=== PATIENT | female | born 1960 | race Caucasian/White ===

== ENCOUNTER 2022-08-23 02:06 | Day surgery (SDC) | payer OTHER, SELFPAY ==
[2022-08-10 14:15] VITALS: BMI 33.0
--- NOTE | 2022-08-10 14:16 | PC.NURSE ---
Report to the Outpatient Waiting Room, entrance under the green pavilion located off [facility], at time _1015_ on date _[id number]_. OR Time: _1215_. Time changes happen often and if your time is changed the preop area will call you the afternoon before. - You and your visitor will be asked to self-screen and do not enter if you have any COVID symptoms. - Only one visitor and NO children visitors are allowed at this time. - The patient visitor is requested to leave or wait in car when not with patient due to restrictions. - A mask is required within the hospital. Patients may have clear liquids (water, carbonated beverages, clear teas, apple juice) until 3 hours prior to surgery with a maximum of 20 ounces. - No food from midnight until time of surgery Take the following medications with a SIP of water the morning of surgery: ____Carvidilol Medications to discontinue per physician ____None Date to take last dose Please no make-up, nail [place], hairspray, perfume, deodorant, or body powder the day of surgery. No jewelry (including any body piercings) or valuables the day of surgery, leave them at home. Please take a shower or bath the night before, or the morning of, surgery with an antibacterial soap. Wear comfortable, loose fitting clothing. - Jewelry must be removed prior to entering the operating room. Rings and piercings that are not removed may be cut off. - The hospital will not accept responsibility for valuables. - Please leave all valuables, including medications, at home the day of surgery. If you are going home after surgery, a licensed [employer] flatbed driver must drive you home. - NO public transportation without another adult. - We recommend that an adult stay with you for 24 hours following discharge. - We also recommend that you do not drive, make important decision, drink alcoholic beverages, or take any drugs that were not prescribed by your health care provider for at least 24 hours after your discharge time. Follow any additional instructions given to you from your surgeon. If you or anyone in your household have experienced Covid symptoms in the past week, please notify your surgeon or the nurse liaison at the phone number below for possible testing. Telephone instructions given to _Patient___and asked if any additional questions and then verbalized understanding. Patient advised to call surgeon office or pre surgery nurse liaison [phone] if any additional questions.
--- NOTE | 2022-08-23 08:22 | WPDHPUPDATE1 ---
History and Physical Update Update Date/Time: 08/23/22 08:22 History and Physical has been reviewed, including an updated exam of the patient. There are NO changes in the patient's condition. Risks, benefits, and alternatives have been discussed and questions answered. Patient agrees to proceed with procedure.
--- NOTE | 2022-08-23 08:22 | PM.HPGS ---
History of Present Illness History of Present Illness Consent: Risks, benefits, and alternatives have been discussed and questions answered. Patient agrees to proceed with procedure. Chief complaint: embedded IUD Narrative: Melanie Marques is a 61 year old female with embedded intrauterine device. Attempt to remove the intrauterine device at her office appointment were not successful. The IUD appears to be embedded within the myometrium. It was recommended to proceed with hysteroscopy for removal. The risks of infection, bleeding, perforation, and inability to remove the IUD were reviewed. Patient voices understanding and agrees to proceed. Review of Systems Review of Systems: not repeated day of surgery; patient states no changes in status [facility] Past Medical History Medical History (Updated 08/23/22 @ 08:28 by Janet Toth MD) Breast cancer diagnosed May of 2022 HTN (hypertension) Migraines (normal spontaneous vaginal delivery) x2 Surgical History Surgical History (Updated 08/23/22 @ 11:22 by Janet Toth MD) History of ankle surgery History of appendectomy History of bilateral knee replacement History of breast biopsy History of cholecystectomy History of tonsillectomy S/P bilateral mastectomy 07/29 with placement of expanders Social History Social History Smoking status: Never smoker Alcohol intake: current Living arrangements: with family Spiritual care concerns: No Meds Home Medications and Allergies Home Medications Medication Instructions Recorded Confirmed Type carvedilol 12.5 mg tablet 12.5 mg PO BID 08/10/22 08/10/22 History ergocalciferol (vitamin D2) 1,250 1,250 mcg PO WEEKLY 08/10/22 08/10/22 History mcg (50,000 unit) capsule fiber 2 cap PO BID 08/10/22 08/10/22 History losartan 50 mg tablet 50 mg PO BID 08/10/22 08/10/22 History Allergies Allergy/AdvReac Type Severity Reaction Status Date / Time Sulfa (Sulfonamide Allergy Severe Hives Verified 08/10/22 14:04 Antibiotics) latex Allergy Intermediate Rash Verified 08/10/22 14:04 Opioids - Morphine Analogues AdvReac Intermediate Hallucinati Verified 08/10/22 14:04 ng Exam Const: General: healthy appearing and alert Orientation/consciousness: patient oriented x3 Resp: Effort & Inspection: normal respiratory effort GI: GI Palp: Yes Soft to palpation, No Tenderness to palpation present (GI) and No Palpable mass present : External Female Exam: normal external appearance Speculum Exam - Vagina: normal appearance of the vagina and normal vaginal discharge Speculum Exam - Cervix: normal appearance of the cervix Bimanual exam- vagina & uterus: uterine size normal and consistency normal Bimanual Exam- Adnexa, other: normal adnexae and No adnexal tenderness Neuro: General: patient oriented x3 Assessment and Plan Assessment and plan (1) Malpositioned intrauterine device (IUD): Code(s): T83.32XA - Displacement of intrauterine contraceptive device, initial encounter Status: Acute Assessment and Plan: plan to proceed with the hysteroscopic removal of IUD
[2022-08-23 11:00] VITALS: BP 132/72; PULSE 66; RESP 10; TEMP 37.4; O2SAT 100
[2022-08-23] MEDS: ACETAMINOPHEN 500 MG TABLET 1000 MG PO (11:00)
[2022-08-23] MEDS: LACTATED RINGERS 1,000 ML 30 ML IV CONT (11:00)
--- NOTE | 2022-08-23 11:29 | P.PNAN_ITS ---
Anes - Initial Pre Proc Eval Procedure: Operation Date: 08/23/22 12:15 Proposed Procedures p Hysteroscopy, Intrauterine Device Removal - Janet Toth MD Date/Time: 08/23/22 11:29 Surgeon: Janet Toth MD Pre Op Diagnosis: embedded IUD Patient Data Age: 61 Gender: F Height: 1.74 m Weight: 100 kg Allergies Allergy/AdvReac Type Severity Reaction Status Date / Time Sulfa (Sulfonamide Allergy Severe Hives Verified 08/10/22 14:04 Antibiotics) latex Allergy Intermediate Rash Verified 08/10/22 14:04 Opioids - Morphine Analogues AdvReac Intermediate Hallucinati Verified 08/10/22 14:04 ng Home Medications Medication Instructions Recorded Confirmed Type carvedilol 12.5 mg tablet 12.5 mg PO BID 08/10/22 08/10/22 History ergocalciferol (vitamin D2) 1,250 1,250 mcg PO WEEKLY 08/10/22 08/10/22 History mcg (50,000 unit) capsule fiber 2 cap PO BID 08/10/22 08/10/22 History losartan 50 mg tablet 50 mg PO BID 08/10/22 08/10/22 History Patient hx anesthesia problems: none Family hx anesthesia problems: none Results Review: All pre-operative results and documents have been reviewed as part of the pre- operative evaluation. [facility] Past Medical History Medical History (Updated 08/23/22 @ 11:30 by Julien Diaz MD) Breast cancer diagnosed May of 2022 HTN (hypertension) Migraines (normal spontaneous vaginal delivery) x2 ELIANA (obstructive sleep apnea) Surgical History Surgical History History of ankle surgery History of appendectomy History of bilateral knee replacement History of breast biopsy History of cholecystectomy History of tonsillectomy S/P bilateral mastectomy 07/29 with placement of expanders Social History Social History Smoking status: Never smoker Alcohol intake: current Living arrangements: with family Spiritual care concerns: No Anes - Eval Final PreProcedure Day of Procedure 08/23/22 11:29 Patient weight: obese Heart: regular rate and rhythm Lungs: clear to auscultation Airway: Mallampati scale class II Neurological: alert and oriented Last oral intake: >/= 8 hours ASA classification: III Emergent: no Anesthetic plan: proceed Anesthesia type and monitoring: general GIVS and standard monitoring Results Review: All pre-operative results and documents have been reviewed as part of the pre- operative evaluation. Informed Consent: The patient's anesthetic plan and its attendant risks and benefits were discussed with the patient/family/POA. Questions were solicited and answers provided to the satisfaction of the patient/family/POA.
[2022-08-23] MEDS: LIDOCAINE HCL 1% PF 30 ML VIAL 10 ML INFILTRATE (12:28)
[2022-08-23 12:40] VITALS: BP 122/71; PULSE 82; RESP 12; O2SAT 94
--- NOTE | 2022-08-23 12:54 | W.PM.PROC2 ---
Procedure Note - Detailed Date of Procedure 08/23/22 Pre-op Diagnosis embedded IUD Post-op Diagnosis Same Procedure Performed Hysteroscopic removal of IUD Surgeon Janet Toth MD Anesthesia MAC and Local Findings IUD in the proper location with the left arm embedded in the muscle. Remainder of the endometrium appears atrophic. Description of Procedure The patient is taken to the operating room and placed under anesthesia in dorsal lithotomy position. She was prepped and draped in usual sterile fashion. Hermleigh speculum was placed in the vagina and the cervix grasped on the anterior lip with a tenaculum. The cervix is injected in each quadrant with 1% lidocaine. The uterus is sounded to 8.5cm.The cervix is serially dilated to a 6 Hegar. The hysteroscope was placed with the above-stated findings. The grasper was placed through the port and the arm that is embedded is grasped and the IUD is pulled out with the hysteroscope intact. The hysteroscope was replaced and the endometrium evaluated with the above-stated findings. All instruments are removed. Patient is awakened from anesthesia and taken to recovery in stable condition. Sponge, needle, and instrument counts are correct per the OR staff. Estimated Blood Loss 5 Drains No Packing No Pathology None sent Complications No immediate complications Condition Stable Disposition PACU
[2022-08-23 13:10] VITALS: BP 144/84; PULSE 64; RESP 12; O2SAT 97
[2022-08-23 13:40] VITALS: BP 153/91; PULSE 59; RESP 12
== END 2022-08-23 14:00 | disposition home or self-care (01) ==
PROVIDERS: Visit Provider Obstetrics & Gynecology Gynecology
PROC: 0U5B8ZZ Destruction of Endometrium, Via Natural or Artificial Opening Endoscopic (ICD-10-PCS; CPT 58563; principal; 2022-08-23 12:15)
DX: T83.39XA Other mechanical complication of intrauterine contraceptive device, initial encounter (principal); Y84.8 Other medical procedures as the cause of abnormal reaction of the patient, or of later complication, without mention of misadventure at the time of the procedure; I10 Essential (primary) hypertension; Z85.3 Personal history of malignant neoplasm of breast; Z90.13 Acquired absence of bilateral breasts and nipples
CPT/HCPCS: 58562; A9270; J2250; J2704; J3010; J7120